=== PATIENT | female | born 1960 | race Caucasian/White ===

== ENCOUNTER 2021-12-04 09:08 | Day surgery (SDC) | payer BC, SELFPAY ==
--- NOTE | ~2021-12-04 | CT_ITS ---
EXAMINATION: NECK AND CHEST CT CLINICAL INFORMATION: Choking and trouble swallowing. Question food/chicken stuck in throat or esophagus. COMPARISON: None TECHNIQUE: Axial images through the neck and chest without contrast. Sagittal and coronal reconstructions on the technologist workstation were performed. Patient dose 6 9 2 mm gupta per centimeter. This CT examination was performed using dose optimization techniques as appropriate, variously including the following: *Automated exposure control *Adjustment of mA and/or kV according to patient size (this includes techniques or standardized protocols for targeted exams where dose is matched to indication/reason for exam; i.e. extremities or head) *Use of iterative reconstruction technique FINDINGS: Neck: The cervical esophagus is slightly distended and contains air and fluid. No foreign body is seen. No abnormal air collection outside the esophagus to suggest perforation, esophageal wall thickening or abnormal appearance of the fat is seen. The prevertebral soft tissues are normal. The epiglottis is normal. The larynx is normal. Visualized intracranial structures are normal. There is right maxillary sinus disease. Visualized paranasal sinuses, mastoid air cells and middle ears are otherwise clear. The visualized orbits are normal. The salivary glands are normal. Fibroid gland is normal. There are no enlarged lymph nodes in the neck. There is degenerative spondylosis at C4-C5 C5-C6 and C6-C7. There is degenerative disc disease at C5-C6 and C6-C7. CHEST: The proximal, mid and distal thoracic esophagus is slightly dilated and fluid filled. Unfortunately, the entire lower chest was not imaged as one sequence. Additional imaging of the lower chest and upper abdomen was performed however there may be a segment of the distal thoracic esophagus that was skipped. There is an esophageal hernia. There is heterogeneous slightly high attenuation soft tissue seen in the distal thoracic esophagus above the esophageal hernia probably representing retained food. No abnormal fluid or air in the mediastinum to suggest esophageal perforation is seen. The heart is normal in size. No pericardial effusion or coronary artery calcification. Normal caliber thoracic aorta. No enlarged hilar or mediastinal lymphadenopathy. The lungs are clear. No pleural effusion or pleural thickening. No chest wall mass or enlarged axillary lymph nodes. Question small right renal cyst. Images through the upper abdomen are otherwise unremarkable. Bony structures are normal. CT/CT soft tissue neck wo IV con IMPRESSION: Neck CT: Dilated fluid-filled cervical esophagus. No foreign body abnormal wall thickening or evidence of perforation is seen. Right maxillary sinus disease. Chest CT: Dilated fluid-filled proximal mid and distal thoracic esophagus. Small esophageal hernia. Heterogeneous soft tissue in the distal thoracic esophagus just above the hernia probably representing retained food. No evidence of esophageal perforation. Unfortunately the and entire distal thoracic esophagus may have not been imaged as described above. Findings will be communicated by the [place] work flow filter assembler.
[2021-12-04 09:18] VITALS: BP 154/99; PULSE 105; RESP 22; TEMP 36.4; O2SAT 98; BMI 22.6
--- NOTE | 2021-12-04 11:12 | ED.GENADULT ---
HPI - General Adult General Chief complaint: General Medical Stated complaint: Chicken stuck in throat/Cant swallow Time Seen by Provider: 12/04/21 11:12 Source: patient Mode of arrival: ambulatory Limitations: no limitations Related Data Allergies Allergy/AdvReac Type Severity Reaction Status Date / Time amoxicillin Allergy Rash Verified 12/04/21 09:18 Physical Exam ED Vital Signs: Vital Signs - 24 hr 12/04/21 09:18 Temperature 97.6 F Pulse Rate 105 H Respiratory Rate 22 H Blood Pressure 154/99 H Pulse Oximetry 98 Oxygen Delivery Method Room Air BMI result Body Mass Index 22.6
--- NOTE | 2021-12-04 11:51 | ED_ITS ---
HPI - General Adult General Chief complaint: General Medical Stated complaint: Chicken stuck in throat/Cant swallow Time Seen by Provider: 12/04/21 11:12 Source: patient Mode of arrival: ambulatory Limitations: no limitations History of Present Illness HPI narrative: 61-year-old female presents to ED for checking being stuck in her throat. Patient states last night she was drinking chicken broth soups and the cheeking Dilaudid or throat and she started chocking Related Data Allergies Allergy/AdvReac Type Severity Reaction Status Date / Time amoxicillin Allergy Rash Verified 12/04/21 09:18 [facility] Social History Social History Advance Directives: Yes Advance Directives Information Provided: No Advance Directives on File: No Physical Exam ED Vital Signs: Vital Signs - 24 hr 12/04/21 09:18 12/04/21 14:29 Temperature 97.6 F Pulse Rate 105 H 100 Respiratory Rate 22 H 16 Blood Pressure 154/99 H 162/73 H Pulse Oximetry 98 97 Oxygen Delivery Method Room Air Room Air BMI result Body Mass Index 22.6 Const General: cooperative, healthy appearing, comfortable, no acute distress, well developed, alert, awake, Physically active and in distress mild Orientation/consciousness: patient oriented x3 HENMT Other: Drooling Head: Yes normal to inspection, Yes No palpable skull fracture present, Yes normocephalic and Yes atraumatic Mouth: Normal oral and palatal mucosa present, lip normal and tongue normal Throat: Yes posterior oropharynx normal, Yes tonsils normal and Yes uvula midline Eyes General: appearance normal, both eyes and all related structures Neck Neck: Yes normal visual inspection, Yes full ROM, Yes no lymphadenopathy, Yes no meningeal signs, Yes trachea midline, Yes supple, No anterior neck swelling and No tender Chest Chest palpation & inspection: normal inspection of the chest and normal palpati on of entire chest wall Resp Effort & Inspection: normal respiratory effort and able to speak in complete sentences Auscultation: clear to auscultation bilaterally Cardio Jugular venous distension: no JVD Heart sounds: S1 normal heart sound present and S2 normal heart sound present GI Inspection: Yes normal to inspection and No abdominal wall ecchymosis Palpation (GI): Soft to palpation, not firm, nontender, no guarding and not rigid General: No CVA tenderness and Yes no CVA tenderness Back/Spine/Pelvis Back: no CVA tenderness, No CVA tenderness and No back tenderness Skin General skin exam: no rashes or lesions noted and elasticity normal Neuro General: patient oriented x3, gait normal and no meningeal signs Cranial nerves: Yes CN's II-XII intact bilaterally Extrem General: Yes normal to inspection and Yes full ROM Psych Appearance: grossly normal, well kempt and not disheveled Course Course Course Narrative: Labs, CT scan of neck and chest, and glucagon ordered Reevaluation(s) Reevaluation #1: Patient vomited multiple times while drinking water. No improvement with glucagon. Labs are normal. CT scan shows food bolus. Case discussed with Dr. Kahn gastroenterology who states patient will be scheduled for the OR for endoscope. Patient not in respiratory distress Time: 16:16 Medical Decision Making MDM Narrative Medical decision making narrative: Food bolus Lab Data Result diagrams: 12/04/21 11:47 12/04/21 11:47 Labs: Lab Results 12/04/21 12/04/21 12/04/21 Range/Units 11:47 11:47 11:47 WBC 7.7 (4.8-10.8) X10*3/uL RBC 4.58 (4.20-5.50) X10*6/uL Hgb 14.8 (12.0-16.0) g/dl Hct 43.7 (37.0-47.0) % MCV 95.4 (80.0-98.0) fL MCH 32.3 (27.0-33.0) pg MCHC 33.9 (31.0-35.0) g/dl RDW 12.3 (11.0-16.0) % Plt Count 331 (160-400) X10*3/uL MPV 9.1 L (9.4-12.3) fL Immature Gran % (Auto) 0.3 (0.0-0.4) % Neut % (Auto) 67.2 (45-73) % Lymph % (Auto) 24.5 (20-40) % Andrew % (Auto) 7.1 (2-11) % Eos % (Auto) 0.4 (0-4) % Baso % (Auto) 0.5 (0-2) % Lymph # (Auto) 1.9 (1.2-4.9) X10*3/uL [place] # (Auto) 0.6 (0.1-1.2) X10*3/uL Eos # (Auto) 0.0 (0.0-0.4) X10*3/uL Baso # (Auto) 0.0 (0.0-0.2) X10*3/uL Abs Immat Gran (auto) 0.02 (0.00-0.03) X10*3/uL Absolute Neuts (auto) 5.2 (2.0-8.3) x10*3/uL Absolute Nucleated RBC 0.000 (0.0-0.012) X10*3/uL Nucleated RBC % (auto) 0.0 (0.0-0.2) /100WBC PT 10.6 (10.0-13.1) SEC INR 0.9 (0.9-1.1) APTT 34.2 (26.0-36.4) SEC Sodium 145 (135-145) mmol/L Potassium 4.0 (3.3-5.1) mmol/L Chloride 104 (96-108) mmol/L Carbon Dioxide 21 L (22-29) mmol/L Anion Gap 24 H (12-20) BUN 16 (9-16) mg/dL Creatinine 0.72 (0.5-1.4) mg/dL Estim Creat Clear Calc 60.3 Estimated GFR > 60 Random Glucose 134 H (60-115) mg/dL Calcium 10.4 H (8.4-10.2) mg/dL Total Bilirubin 0.7 (0.0-1.0) mg/dL AST 30 (5-31) U/L ALT 26 (0-31) U/L Alkaline Phosphatase 98 (39-117) U/L Total Protein 8.5 H (6.5-8.0) g/dL Albumin 5.2 H (3.5-5.0) g/dL COVID-19 (JASON) (Negative) COVID-19 Clin Com 12/04/21 Range/Units 14:29 WBC (4.8-10.8) X10*3/uL RBC (4.20-5.50) X10*6/uL Hgb (12.0-16.0) g/dl Hct (37.0-47.0) % MCV (80.0-98.0) fL MCH (27.0-33.0) pg MCHC (31.0-35.0) g/dl RDW (11.0-16.0) % Plt Count (160-400) X10*3/uL MPV (9.4-12.3) fL Immature Gran % (Auto) (0.0-0.4) % Neut % (Auto) (45-73) % Lymph % (Auto) (20-40) % Andrew % (Auto) (2-11) % Eos % (Auto) (0-4) % Baso % (Auto) (0-2) % Lymph # (Auto) (1.2-4.9) X10*3/uL Andrew # (Auto) (0.1-1.2) X10*3/uL Eos # (Auto) (0.0-0.4) X10*3/uL Baso # (Auto) (0.0-0.2) X10*3/uL Abs Immat Gran (auto) (0.00-0.03) X10*3/uL Absolute Neuts (auto) (2.0-8.3) x10*3/uL Absolute Nucleated RBC (0.0-0.012) X10*3/uL Nucleated RBC % (auto) (0.0-0.2) /100WBC PT (10.0-13.1) SEC INR (0.9-1.1) APTT (26.0-36.4) SEC Sodium (135-145) mmol/L Potassium (3.3-5.1) mmol/L Chloride (96-108) mmol/L Carbon Dioxide (22-29) mmol/L Anion Gap (12-20) BUN (9-16) mg/dL Creatinine (0.5-1.4) mg/dL Estim Creat Clear Calc Estimated GFR Random Glucose (60-115) mg/dL Calcium (8.4-10.2) mg/dL Total Bilirubin (0.0-1.0) mg/dL AST (5-31) U/L ALT (0-31) U/L Alkaline Phosphatase (39-117) U/L Total Protein (6.5-8.0) g/dL Albumin (3.5-5.0) g/dL COVID-19 (JASON) Negative (Negative) COVID-19 Clin Com See Note Discharge Plan Discharge Clinical Impression: Esophageal obstruction due to food impaction Patient Disposition: Xfer Other Transfer Details: Surgery Instructions: Food Impaction (ED) Interventions: ED Discharge Assessment Last Done: 12/04/21 15:55 Discharge Date/Time: 12/04/21 15:57
[2021-12-04 11:52] LABS: MANUAL DIFF FLAG NO
[2021-12-04 11:53] LABS: Basophils Percent Auto 0.5 % (0-2); Eosinophils Percent Auto 0.4 % (0-4); Hematocrit 43.7 % (37.0-47.0); Hemoglobin 14.8 g/dl (12.0-16.0); Imm Gran Abs Auto 0.02 X10*3/uL (0.00-0.03); Imm Gran Pct Auto 0.3 % (0.0-0.4); Lymphocytes Absolute Auto 1.9 X10*3/uL (1.2-4.9); Lymphocytes Percent Auto 24.5 % (20-40); Mean Corpuscular HGB Conc 33.9 g/dl (31.0-35.0); Mean Corpuscular Hemoglobin 32.3 pg (27.0-33.0); Mean Corpuscular Volume 95.4 fL (80.0-98.0); Mean Platelet Volume 9.1 fL (9.4-12.3); Monocytes Absolute Auto 0.6 X10*3/uL (0.1-1.2); Monocytes Percent Auto 7.1 % (2-11); Neutrophils Absolute Auto 5.2 x10*3/uL (2.0-8.3); Neutrophils Percent Auto 67.2 % (45-73); Platelet Count 331 X10*3/uL (160-400); Red Blood Count 4.58 X10*6/uL (4.20-5.50); Red Cell Distribution Width 12.3 % (11.0-16.0); White Blood Count 7.7 X10*3/uL (4.8-10.8)
[2021-12-04 11:58] LABS: INTERNATIONAL NORM RATIO 0.9 (0.9-1.1); Prothrombin Time 10.6 SEC (10.0-13.1)
[2021-12-04 12:01] LABS: Partial Thromboplastin Time 34.2 SEC (26.0-36.4)
[2021-12-04] MEDS: Ondansetron ODT 4 MG TAB.RAPDIS TRANSLINGU (12:23)
[2021-12-04 12:41] LABS: Alanine Aminotransferase 26 U/L (0-31); Albumin Level 5.2 g/dL (3.5-5.0); Alkaline Phosphatase 98 U/L (39-117); Anion Gap 24 (12-20); Aspartate Amino Transferase 30 U/L (5-31); Bilirubin Total 0.7 mg/dL (0.0-1.0); Blood Urea Nitrogen 16 mg/dL (9-16); Calcium 10.4 mg/dL (8.4-10.2); Carbon Dioxide 21 mmol/L (22-29); Chloride 104 mmol/L (96-108); Creatinine Clr Calc Pharmacy 60.3; Estimated Glomerular Filt Rate > 60; Glucose Random 134 mg/dL (60-115); Sodium 145 mmol/L (135-145); Total Protein 8.5 g/dL (6.5-8.0)
--- NOTE | 2021-12-04 14:13 | PM.GICN ---
History of Present Illness Data of Consult Service Date: 12/04/21 Requesting physician: Marko Matt Primary Care Provider: RAFAL Haile HPI Reason for consult: Esophageal obstruction due to food bolus 61 YF seen at [facility] ED this morning with dysphagia to solids and liquids. Patient states last night (around 9 pm) she was drinking chicken broth soups with chicken and started chocking. Her performed the Heimlich maneuver and she was able to regurgitate some of the food. She has been unable to drink any solids or liquids or manage her secretions since then. Patient gives a history of intermittent dysphagia to solid food for the past several years. If she has a choking spell her performs the Heilich maneuver with resolution of symptoms. She has never discussed these symptoms with her PCP. Patient denies a history of food allergies or asthma. Patient denies symptoms of heartburn, nausea, vomiting, change in appetite or weight. She denies recent change in bowel habits, constipation, diarrhea, black stools or rectal bleeding. Patient denies major cardiac or pulmonary problems, loud snoring or sleep apnea She had a spinal fusion for scoliosis and denies problems with anesthesia in the past. Pt takes acetaminophen p.r.n. for scoliosis and denies use of NSAIDS or chronic anticoagulation. Patient denies known family history of colon polyps, colon cancer or other GI malignancies. PAST EGD/COLONOSCOPY: None CHEST CT SCAN SHOWED: Neck CT: Dilated fluid-filled cervical esophagus. No foreign body abnormal wall thickening or evidence of perforation is seen. Right maxillary sinus disease. ? Chest CT: Dilated fluid-filled proximal mid and distal thoracic esophagus. Small esophageal hernia. Heterogeneous soft tissue in the distal thoracic esophagus just above the hernia probably representing retained food. No evidence of esophageal perforation. Unfortunately the and entire distal thoracic esophagus may have not been imaged as described above. Review of Systems Constitutional: Constitutional: Denies fever(s) and Denies weight loss ENT: Reports Normal hearing present and Reports dysphagia Cardiovascular: Cardiovascular: Denies chest pain and Denies dyspnea Respiratory: Respiratory: Denies cough and Denies dyspnea Gastrointestinal: Gastrointestinal: Denies abdominal pain, Denies constipation, Reports dysphagia and Denies diarrhea Musculoskeletal: Musculoskeletal: Reports back pain (Due to scoliosis) Neurologic: Reports Normal hearing present PMFSH Social History Social History Patient Tobacco Use Status: Never used Tobacco Meds Allergies Allergy/AdvReac Type Severity Reaction Status Date / Time amoxicillin Allergy Rash Verified 12/04/21 09:18 Physical Exam Vital Signs: Vital Signs: Last Vital Signs Temp 97.6 F 12/04/21 09:18 Pulse 105 H 12/04/21 09:18 Resp 22 H 12/04/21 09:18 BP 154/99 H 12/04/21 09:18 Pulse Ox 98 12/04/21 09:18 O2 Del Method 12/04/21 09:18 BMI result Body Mass Index 22.6 Const: General: healthy appearing and no acute distress Nutritional Appearance: average body habitus Orientation/consciousness: patient oriented x3 Limitations: no limitations HEENT: Head: Yes normal to inspection Ears: hearing grossly normal bilaterally Eyes: Sclerae: sclerae normal Pupils: Equal, round and reactive pupils present Neck: Neck: Yes normal visual inspection Chest: Chest palpation & inspection: normal inspection of the chest Resp: Effort & Inspection: normal respiratory effort Auscultation: clear to auscultation bilaterally Cardio: Palpation: normal PMI Rate: regular rate Rhythm: regular rhythm Heart sounds: S1 normal heart sound present, S2 normal heart sound present and no murmurs GI: Palpation (GI): Soft to palpation, nontender and No hepatosplenomegaly present Auscultation: normal bowel sounds Rectal Exam - Female: deferred Skin: General skin exam: no rashes or lesions noted Neuro: General: patient oriented x3, gait normal and moves all extremities Cranial nerves: Yes Equal, round and reactive pupils present and Yes Normal hearing present Psych: Appearance: grossly normal Mental Status: mental status grossly normal Results Labs CBC & Chem 7: 12/04/21 11:47 12/04/21 11:47 Labs: Short CBC 12/04/21 Range/Units 11:47 WBC 7.7 (4.8-10.8) X10*3/uL Hgb 14.8 (12.0-16.0) g/dl Hct 43.7 (37.0-47.0) % Plt Count 331 (160-400) X10*3/uL BMP 12/04/21 11:47 Sodium 145 Potassium 4.0 Chloride 104 Carbon Dioxide 21 L BUN 16 Creatinine 0.72 Calcium 10.4 H Liver Function 12/04/21 Range/Units 11:47 Total Bilirubin 0.7 (0.0-1.0) mg/dL AST 30 (5-31) U/L ALT 26 (0-31) U/L Alkaline Phosphatase 98 (39-117) U/L Albumin 5.2 H (3.5-5.0) g/dL Assessment and Plan (1) Esophageal obstruction due to food impaction: Status: Acute Plan 61 YF with scoliosis and hx of intermittent dysphagia to solid food came to ED with esophageal obstruction due to a food bolus. She has not had an EGD in the past. Dysphagia is likely due to Schatzki's ring, esophageal stricture, achalasia/motility disorder or EOE. Malignancy woul be unlikely given intermittent symptoms RECOMMENDATIONS: 1. Proceed with urgent EGD with possible dilation for FB removal. EGD procedure and potential complications including bleeding, perforation, reaction to anesthetic and aspiration pneumonia were reviewed with the patient and her [id number] who was present during the interview. Patient would like to proceed with EGD. Procedures Date of Service Date of Service: 12/04/21
[2021-12-04 14:29] VITALS: BP 162/73; PULSE 100; RESP 16; O2SAT 97
[2021-12-04 14:50] LABS: COVID-19 Test Negative (Negative); IDNOW Serial# 55D5AD1C
[2021-12-04] MEDS: Dextrose 5 % and 0.9 % NaCl 1,000 ML 125 ML IVCONT (14:57)
--- NOTE | 2021-12-04 15:15 | PC.NURSE ---
REPORT GIVEN TO MAMADOU IN OR
--- NOTE | 2021-12-04 15:17 | P.CONAN_ITS ---
HPI - Anesthesia Eval Consult details Narrative: Dysphagia, food bolus PMFSH Active Problems Active Problems: All Active Problems (Updated 12/04/21 @ 14:52 by Gallo Kahn MD) Scoliosis (Acute) Esophageal obstruction due to food impaction (Acute) Family History Family history of problems with anesthesia: No Surgical History History of Problems with Anesthesia: No Social History Social History Advance Directives: Yes Advance Directives Information Provided: No Advance Directives on File: No Meds Allergies Allergy/AdvReac Type Severity Reaction Status Date / Time amoxicillin Allergy Rash Verified 12/04/21 09:18 Active Medications: Current Medications Dextrose/Sodium Chloride (D5ns) 1,000 mls @ 125 mls/hr IVCONT .Q8H SHILPA Last Admin: 12/04/21 14:57 Dose: 125 mls/hr Exam Exam Date and Time: December 04, 2021 1517 Height,Weight and Vital Signs: Height 5 ft 1 in Weight 54.431 kg Last Vital Signs Temp 97.6 F 12/04/21 09:18 Pulse 100 12/04/21 14:29 Resp 16 12/04/21 14:29 BP 162/73 H 12/04/21 14:29 Pulse Ox 97 12/04/21 14:29 O2 Del Method 12/04/21 14:29 Pertinent Lab Results Pertinent Lab Results: Laboratory Tests 12/04/21 12/04/21 12/04/21 11:47 11:47 11:47 WBC 7.7 RBC 4.58 Hgb 14.8 Hct 43.7 MCV 95.4 MCH 32.3 MCHC 33.9 RDW 12.3 Plt Count 331 MPV 9.1 L Immature Gran % (Auto) 0.3 Neut % (Auto) 67.2 Lymph % (Auto) 24.5 [place] % (Auto) 7.1 Eos % (Auto) 0.4 Baso % (Auto) 0.5 Lymph # (Auto) 1.9 [place] # (Auto) 0.6 Eos # (Auto) 0.0 Baso # (Auto) 0.0 Abs Immat Gran (auto) 0.02 Absolute Neuts (auto) 5.2 Absolute Nucleated RBC 0.000 Nucleated RBC % (auto) 0.0 PT 10.6 INR 0.9 APTT 34.2 Sodium 145 Potassium 4.0 Chloride 104 Carbon Dioxide 21 L Anion Gap 24 H BUN 16 Creatinine 0.72 Estim Creat Clear Calc 60.3 Estimated GFR > 60 Random Glucose 134 H Calcium 10.4 H Total Bilirubin 0.7 AST 30 ALT 26 Alkaline Phosphatase 98 Total Protein 8.5 H Albumin 5.2 H COVID-19 (JASON) COVID-19 Clin Com 12/04/21 14:29 WBC RBC Hgb Hct MCV MCH MCHC RDW Plt Count MPV Immature Gran % (Auto) Neut % (Auto) Lymph % (Auto) [place] % (Auto) Eos % (Auto) Baso % (Auto) Lymph # (Auto) [place] # (Auto) Eos # (Auto) Baso # (Auto) Abs Immat Gran (auto) Absolute Neuts (auto) Absolute Nucleated RBC Nucleated RBC % (auto) PT INR APTT Sodium Potassium Chloride Carbon Dioxide Anion Gap BUN Creatinine Estim Creat Clear Calc Estimated GFR Random Glucose Calcium Total Bilirubin AST ALT Alkaline Phosphatase Total Protein Albumin COVID-19 (JASON) Negative COVID-19 Clin Com See Note Airway Mallampati Class: II TM Dist: >3cm Neck ROM: Full Loose/Missing/Broken Teeth: No Heart: RRR Lungs: CTA Assessment and Plan Final Anesthetic Review Family History of Problems with Anesthesia: No History of Problems with Anesthesia: No NPO: No ASA Class: I and Emergency Final Preanesthetic Review: No Changes in Pt Med Stat, Meds/Allgs Chart Reviewed, Consent Obtained/Reviewed and Anes Risks/Benef Reviewed Patient Risk: Low Procedure Risk: Low Anesthetic Plan Anesthetic Plan: GA and MAC: Disposition: Standard PACU
--- NOTE | 2021-12-04 16:01 | P.BOP_ITS ---
Brief Operative Note Date of Service: 12/04/21 Pre-op diagnosis: Dysphagia, esophageal impaction with food bolus Post-op diagnosis: other (Esophageal food bolus, esophagitis, gastritis, gastric nodule) Procedure: FLEXIBLE TRANSORAL UPPER GASTROINTESTINAL ENDOSCOPY WITH REMOVAL OF ESOPHAGEAL FOREIGN BODY AND BIOPSIES Consent: Indications for the procedure and potential complications of bleeding, perforation, reaction to medications and missed diagnosis were discussed with the patient and informed consent was obtained. Instrument: Olympus GIF H 190 mid size upper endoscope Monitoring: Vital signs and clinical assessment, continuous EKG monitoring, Pulse oximetry, Carbon Dioxide monitoring and blood pressure monitoring were done throughout the procedure. Procedure: The patient was placed in the left lateral decubitis position and pre-procedure medications were administered and a bite block was placed. The endoscope was inserted into the mouth and advanced under direct vision to the third part of duodenum. A careful inspection was made as the upper endoscope was withdrawn including a retroflexed examination of the proximal stomach; Findings and interventions are described below. Findings: Larynx: Normal Esophagus: A piece of chicken seen lodged in the distal esophagus - passed into the stomach with air insufflation. GE junction at 36 cms. Edema, erythema with circumferential ulcerations from 34 to 36 cms (likely related to food impaction) Biopsies obtained from proximal esophagus to check for EOE. Stomach: A 1 cms benign appearing nodule in the pre-pyloric area with central erosion - biopsies were obtained. Grade 2 flap valve on retroflexed examination of the cardia. Duodenum: Normal bulb and descending duodenum. Biopsies were obtained from 3rd part of the duodenum to check for celiac sprue Intervention: Biopsies as noted above Impression and Post Procedure Diagnosis: Endoscopy Findings: ESOPHAGUS: A piece of chicken seen lodged in the distal esophagus - passed into the stomach with air insufflation. GE junction at 36 cms. Edema, erythema with circumferential ulcerations from 34 to 36 cms (likely related to food impaction) Biopsies obtained from proximal esophagus to check for EOE. STOMACH: A 1 cms benign appearing nodule in the pre-pyloric area with central erosion - biopsies were obtained. DUODENUM: Normal - bxed for celiac sprue Plan: Pt will be sent a letter with pathology results. She will be scheduled for a barium swallow to evaluate symptoms of intermittent dysphagia. She will be scheduled for a FU appointment in the GI Clinic with Gallo Kahn M.D.. Above findings were reviewed with the patient. Surgeon: Gallo Kahn MD Anesthesia: MAC (Dr Ordonez) Was an Drafter Structural used for this Procedure?: Yes Drafter Structural: Myron Flores Estimated blood loss (mL): 0 Pathology: other (A- SMALL BOWEL BXS R/O CELIAC DISEASE B- GASTRIC ANTRUM NODULE C- PROXIMAL ESOPHAGUS BXS R/O EOE) Condition: stable Disposition: PACU
[2021-12-04 16:05] VITALS: BP 127/79; PULSE 92; RESP 15; TEMP 36.3; O2SAT 95
--- NOTE | 2021-12-04 16:09 | W.PM.OPN ---
Operative Note Operative Note Date of Service: 12/04/21 Narrative: Pre-op diagnosis: Dysphagia, esophageal impaction with food bolus Post-op diagnosis:?other (Esophageal food bolus, esophagitis, gastritis, gastric nodule) Procedure: FLEXIBLE TRANSORAL UPPER GASTROINTESTINAL ENDOSCOPY WITH REMOVAL OF ESOPHAGEAL FOREIGN BODY AND BIOPSIES Consent:?Indications for the procedure and potential complications of bleeding, perforation, reaction to medications and missed diagnosis were discussed with the patient and informed consent was obtained. Instrument:?Olympus GIF H 190 mid size upper endoscope Monitoring: Vital signs and clinical assessment, continuous EKG monitoring, Pulse oximetry, Carbon Dioxide monitoring and blood pressure monitoring were done throughout the procedure. Procedure:?The patient was placed in the left lateral decubitis position and pre-procedure medications were administered and a bite block was placed. The endoscope was inserted into the mouth and advanced under direct vision to the third part of duodenum. A careful inspection was made as the upper endoscope was withdrawn including a retroflexed examination of the proximal stomach; Findings and interventions are described below. Findings: Larynx:? Normal Esophagus: A piece of chicken seen lodged in the distal esophagus - passed into the stomach with air insufflation.? GE junction at 36 cms. Edema, erythema with circumferential ulcerations from 34 to 36 cms (likely related to food impaction) Biopsies obtained from proximal esophagus to check for EOE. Stomach: A 1 cms benign appearing nodule in the pre-pyloric area with central erosion - biopsies were obtained. Grade 2 flap valve on retroflexed examination of the cardia. Duodenum: Normal bulb and descending duodenum. Biopsies were obtained from 3rd part of the duodenum to check for celiac sprue Intervention: Biopsies as noted above Impression and Post Procedure Diagnosis: Endoscopy Findings: ESOPHAGUS: A piece of chicken seen lodged in the distal esophagus - passed into the stomach with air insufflation.? GE junction at 36 cms. Edema, erythema with circumferential ulcerations from 34 to 36 cms (likely related to food impaction) Biopsies obtained from proximal esophagus to check for EOE. STOMACH: A 1 cms benign appearing nodule in the pre-pyloric area with central erosion - biopsies were obtained. DUODENUM: Normal - bxed for celiac sprue Plan: Pt will be sent a letter with pathology results. She will be scheduled for a barium swallow to evaluate symptoms of intermittent dysphagia. She will be scheduled for a FU appointment in the GI Clinic with Gallo Kahn M.D.. Above findings were reviewed with the patient. Surgeon: Gallo Kahn MD Anesthesia:?MAC (Dr Ordonez) Was an Field Enumerator used for this Procedure?:?Yes Field Enumerator:?Myron Flores Estimated blood loss (mL):?0 Pathology:?other (A- SMALL BOWEL BXS? R/O CELIAC DISEASE? B- GASTRIC ANTRUM NODULE? C- PROXIMAL ESOPHAGUS BXS? R/O EOE) Condition:?stable Disposition:?PACU
[2021-12-04 16:20] VITALS: BP 133/76; PULSE 99; RESP 20; TEMP 36.4; O2SAT 96
== END 2021-12-04 16:28 ==
LOC: HO.ED 15:47 → HO.SSS 16:29
PROVIDERS: Physician Assistant; Emergency Provider Internal Medicine; PCP Physician Assistant Medical; Visit Provider Internal Medicine Gastroenterology
PROC: 0DJ08ZZ Inspection of Upper Intestinal Tract, Via Natural or Artificial Opening Endoscopic (ICD-10-PCS; CPT 43235; principal; 2021-12-04 15:00)
DX: T18.128A Food in esophagus causing other injury, initial encounter (principal); K22.2 Esophageal obstruction; X58.XXXA Exposure to other specified factors, initial encounter; Y93.89 Activity, other specified; Y92.9 Unspecified place or not applicable; Y99.8 Other external cause status; R13.10 Dysphagia, unspecified; K29.50 Unspecified chronic gastritis without bleeding; K20.80 Other esophagitis without bleeding; K31.7 Polyp of stomach and duodenum; K44.9 Diaphragmatic hernia without obstruction or gangrene; M41.9 Scoliosis, unspecified; Z79.899 Other long term (current) drug therapy; Z88.0 Allergy status to penicillin; Z20.822 Contact with and (suspected) exposure to COVID-19
CPT/HCPCS: 43247; 43239; 36415; 70490; 71250; 80053; 85025; 85610; 85730; 87635; 88305; 88342; 96372; 96374; 96375; 99284; 99285; J1610; J3010

== ENCOUNTER 2022-01-18 08:44 | Outpatient (REF) | payer BC, SELFPAY ==
--- NOTE | ~2022-01-18 | FL_ITS ---
EXAMINATION: FL BARIUM SWALLOW CLINICAL INFORMATION: Esophagitis. COMPARISON: CT scans 12/04/2021. TECHNIQUE: Barium swallow examination is performed using fluoroscopic evaluation in addition to multiple fluoroscopic spot views. The patient is imaged both upright and prone and using both thick and thin sulfate along with effervescent granules. Fluoroscopy time: 2.7 minutes DAP: 4.590 Gycm2 Images: 31 FINDINGS: The patient initiated swallowing normally. The cervical esophagus is normal in appearance. There is ineffective primary peristalsis with to-and-fro tertiary contractions. No fixed esophageal mucosal abnormality to suggest stricture or mass. No hiatal hernia. No esophageal reflux observed were elicited. FL/FL barium swallow IMPRESSION: There is ineffective primary peristalsis with to-and-fro tertiary contractions most prominent position, suggesting a degree of esophageal dysmotility. No fixed esophageal mucosal abnormality to suggest fracture or mass. No specific findings of esophagitis.
== END 2022-01-18 08:45 | disposition home or self-care (01) ==
LOC: HO.XRAY 08:44
PROVIDERS: PCP Physician Assistant Medical; Visit Provider Internal Medicine Gastroenterology
DX: K20.90 Esophagitis, unspecified without bleeding (principal)
CPT/HCPCS: 74220